=== PATIENT | male | born 1960 | race Caucasian/White ===

== ENCOUNTER 2018-01-05 08:21 | Emergency (ER) | payer OTHER ==
[2018-01-05 08:53] VITALS: BP 124/78
--- NOTE | 2018-01-05 09:08 | UC ---
Back Pain HPI - HPI Summary HPI Summary: 57-year-old male comes in today with complaint of left lower back pain. He has chronic back pain but over the last week the pains got a lot worse. The worst part is in the left lower back sometimes the pain shoots into the groin.. The left leg feels numb intermittently. He feels the left leg is not as strong as the right leg. No difficulty controlling urine or bowels. No new injury. Patient usually works out in the gym every day he's have to avoid that because of the pain. He does take Celebrex. Ibuprofen used out but it does not help anymore. - History of Current Complaint Chief Complaint: UCBackPain Stated Complaint: LOWER LEFT SIDE BACK PAIN Time Seen by Provider: 01/05/18 08:54 Pain Intensity: 6 - Allergies/Home Medications Allergies/Adverse Reactions: Allergies Allergy/AdvReac Type Severity Reaction Status Date / Time No Known Allergies Allergy Verified 01/05/18 08:44 Home Medications: Home Medications Doxazosin TAB* [Cardura TAB*] 1 dose PO BEDTIME 01/05/18 [History Confirmed 06/20] Ibuprofen TAB* [Advil TAB*] 800 mg PO Q6H PRN 01/05/18 [History Confirmed ] celeCOXIB CAP* [CeleBREX CAP*] 100 mg PO DAILY 01/05/18 [History Confirmed 01/05] traZODone TAB* [Desyrel TAB*] 50 mg PO BEDTIME 01/05/18 [History Confirmed 01/05] PMH/Surg Hx/FS Hx/Imm Hx - Additional Past Medical History Additional PMH: Chronic low back pain - Surgical History Surgery Procedure, Year, and Place: Left arm surgery - Social History Alcohol Use: Rare Substance Use Type: None Smoking Status (MU): Never Smoked Tobacco Review of Systems Constitutional: Negative Skin: Negative Eyes: Negative ENT: Negative Respiratory: Negative Cardiovascular: Negative Gastrointestinal: Negative Motor: Other - Patient reports the left leg does not feel as strong as the right leg Neurovascular: Decreased Sensation - Patient reports some decreased sensation in the left leg Musculoskeletal: Other: - SEE HPI Neurological: Weakness, Numbness Psychological: Negative Is Patient Immunocompromised?: No All Other Systems Reviewed And Are Negative: Yes Physical Exam Triage Information Reviewed: Yes Appearance: Well-Appearing, No Pain Distress, Well-Nourished Vital Signs: Initial Vital Signs Temp 98.8 F 01/05/18 08:48 Pulse 82 01/05/18 08:48 Resp 18 01/05/18 08:48 BP 124/78 01/05/18 08:48 Pulse Ox 97 01/05/18 08:48 Vital Signs Reviewed: Yes Eye Exam: Normal Eyes: Positive: Conjunctiva Clear Neck exam: Normal Neck: Positive: Supple Respiratory: Positive: No respiratory distress Musculoskeletal: Positive: Strength Intact, ROM Intact, Other: - Patient is tender to palpation mid lower back and also left of the lower back. There is no tenderness down through the sciatic situation down to the buttock. Patellar reflexes are 1+ bilaterally. Patient reports decreased sensation in the left leg comparison to the right leg. Strength is 5 out of 5 throughout right leg and left leg however the patient states that he feels like his left leg is weaker. He has increased low back pain with hip flexion on both right and left leg. Neurological: Positive: Muscle Tone Normal Psychological Exam: Normal Psychological: Positive: Age Appropriate Behavior Skin Exam: Normal Back Pain Course/Dx - Course Course Of Treatment: Order Information: CT SPINE LUMBAR W/O. Accession Number: [id number]. CPT: 40731. INDICATION: Low back pain. COMPARISON: There are no relevant prior studies available for comparison. TECHNIQUE: Contiguous axial sections were obtained beginning above the T12 vertebra and. continuing through the L5-S1 disc space. Images were reconstructed in the sagittal and. coronal planes. FINDINGS: VERTEBRA: There is a gdlz-[id number] lumbar scoliosis convex toward the left side. No. fracture is seen. There appears to be diffuse congenital spinal canal narrowing. L1-L2: At the L1-L2 level there is posterior endplate spurring associated with a mild. broad-based disc bulge and moderate to severe hypertrophic changes within the facet joints. which gives rise to moderate spinal canal narrowing. There is mild to moderate bilateral. neural foraminal narrowing. L2-L3: There is posterior endplate spurring associated with a broad-based disc bulge and. severe hypertrophic changes within the facet joints which give rise to severe spinal canal. narrowing. There is mild neural foraminal narrowing on the right side and moderate neural. foraminal narrowing on the left side. L3-L4: There is mild posterior endplate spurring associated with a broad-based disc bulge. and severe hypertrophic changes within the facet joints which give rise to severe spinal. canal narrowing. There is moderate bilateral neural foraminal narrowing. L4-L5: There is posterior endplate spurring associated with a mild broad-based disc bulge. and severe hypertrophic changes within the facet joints which give rise to moderate to. severe spinal canal narrowing and moderate to severe bilateral neural foraminal narrowing. L5-S1: There is posterior endplate spurring associated with a mild broad-based disc bulge. and severe hypertrophic changes within the facet joints. There is lateral recess narrowing. and severe neural foraminal narrowing on the left side and moderate to severe neural. foraminal narrowing on the right side. 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 L1-L2 LEVEL, SEVERE SPINAL CANAL NARROWING AT THE L2-L3 AND L3-L4 LEVELS, MODERATE TO. SEVERE SPINAL CANAL NARROWING AT THE L4-L5 LEVEL AND LATERAL RECESS NARROWING AT THE L5-S1. LEVEL. THERE IS ALSO NEURAL FORAMINAL NARROWING AT MULTIPLE LEVELS NOTED. CONSIDER. FOLLOW-UP MR IMAGING FOR FURTHER DEFINITION. _. <Electronically signed by Cheo Butler MD in [facility]> 01/05/18 7716. I discussed the CT results with the patient. The plan at this time is to do prescription for naproxen and a Medrol Dosepak. Patient is to call his primary care doctor today for follow-up. Most probably he would benefit from getting an MRI and potentially physical therapy and if needed follow-up with the customer relationship specialist. The patient know that if he has any weakness numbness difficulty controlling urine or bowels he is to get checked right away preferably in an institution that is able to get an MRI right away. - Differential Dx/Diagnosis Provider Diagnoses: LOW BACK PAIN. LUMBAR RADICULOPATHY Discharge - Sign-Out/Discharge Documenting (check all that apply): Patient Departure All imaging exams completed and their final reports reviewed: Yes - Discharge Plan Condition: Stable Disposition: HOME Prescriptions: methylPREDNISolone [Medrol Dosepak 4 MG*] 4 mg PO .SEE JEFF INSTRUCTION #1 jeff Naproxen [Naproxen 500 mg tab] 500 mg PO BID #30 tablet. Patient Education Materials: Back Pain (ED), Lower Back Exercises (ED), Lumbar Radiculopathy (ED), Lumbar Spinal Stenosis (ED) Referrals: Jan Bonds MD [Primary Care Provider] - Additional Instructions: FOLLOW UP WITH YOUR PRIMARY CARE DOCTOR. CALL THEM TODAY TO ARRANGE FOR FOLLOW UP. GET RECHECKED RIGHT AWAY FOR ANY WORSENING OF YOUR CONDITION; WEAKNESS, NUMBNESS , DIFFICULTY CONTROLLING BOWEL OR BLADDER OR QUESTIONS OR CONCERNS. - Billing Disposition and Condition Condition: STABLE Disposition: Home
--- NOTE | 2018-01-05 09:58 | RAD ---
INDICATION: Low back pain. COMPARISON: There are no relevant prior studies available for comparison. TECHNIQUE: Contiguous axial sections were obtained beginning above the T12 vertebra and continuing through the L5-S1 disc space. Images were reconstructed in the sagittal and coronal planes. FINDINGS: VERTEBRA: There is a asbw-sq-bnfzxoue lumbar scoliosis convex toward the left side. No fracture is seen. There appears to be diffuse congenital spinal canal narrowing. L1-L2: At the L1-L2 level there is posterior endplate spurring associated with a mild broad-based disc bulge and moderate to severe hypertrophic changes within the facet joints which gives rise to moderate spinal canal narrowing. There is mild to moderate bilateral neural foraminal narrowing. L2-L3: There is posterior endplate spurring associated with a broad-based disc bulge and severe hypertrophic changes within the facet joints which give rise to severe spinal canal narrowing. There is mild neural foraminal narrowing on the right side and moderate neural foraminal narrowing on the left side. L3-L4: There is mild posterior endplate spurring associated with a broad-based disc bulge and severe hypertrophic changes within the facet joints which give rise to severe spinal canal narrowing. There is moderate bilateral neural foraminal narrowing. L4-L5: There is posterior endplate spurring associated with a mild broad-based disc bulge and severe hypertrophic changes within the facet joints which give rise to moderate to severe spinal canal narrowing and moderate to severe bilateral neural foraminal narrowing. L5-S1: There is posterior endplate spurring associated with a mild broad-based disc bulge and severe hypertrophic changes within the facet joints. There is lateral recess narrowing and severe neural foraminal narrowing on the left side and moderate to severe neural foraminal narrowing on the right side. IMPRESSION: CONGENITAL SPINAL CANAL NARROWING EXACERBATED BY DIFFUSE DEGENERATIVE DISC DISEASE AND FACET OSTEOARTHRITIS GIVING RISE TO MODERATE SPINAL CANAL NARROWING AT THE L1-L2 LEVEL, SEVERE SPINAL CANAL NARROWING AT THE L2-L3 AND L3-L4 LEVELS, MODERATE TO SEVERE SPINAL CANAL NARROWING AT THE L4-L5 LEVEL AND LATERAL RECESS NARROWING AT THE L5-S1 LEVEL. THERE IS ALSO NEURAL FORAMINAL NARROWING AT MULTIPLE LEVELS NOTED. CONSIDER FOLLOW-UP MR IMAGING FOR FURTHER DEFINITION.
== END 2018-01-05 10:46 | disposition home or self-care (01) ==
LOC: UCCORT 08:21
DX: M51.16 Intervertebral disc disorders with radiculopathy, lumbar region (principal); G89.29 Other chronic pain; M48.07 Spinal stenosis, lumbosacral region
CPT/HCPCS: 72131; 99212; G0463

== ENCOUNTER 2018-11-09 14:20 | Emergency (ER) | payer OTHER ==
--- OUTSIDE RECORDS SUMMARY | 2018-11-09 14:36 | XMS REPORT | Continuity of Care Document ---
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 aJn Bonds MD Primary Care Physician Unavailable Payers Date Identification Numbers Payment Provider Subscriber Policy Number: [id number] Lifetime Benefits [employer] Dimitry [employer] PayID: [id number] [address] [address] [place] [address] Family History Date Family Member(s) Observation Comments Father due to Natural Causes () - Mother due to Natural Causes () - 89 Social History Type Date Description Comments Sex Unknown Tobacco Use Start: Unknown Never Smoked Cigarettes ETOH Use Rare Use Of Alcohol Recreational Drug Use Never Used Drugs Allergies, Adverse Reactions, Alerts Description No Known Drug Allergies Medications Active Medications SIG Qnty Indications Ordering Provider Date Meloxicam 1 by mouth every Unknown 7.5mg Tablets day Zolpidem Tartrate Unknown 5mg Tablets Amlodipine Besylate 1 by mouth every Unknown 10mg day Tablets Doxazosin Mesylate daily Unknown 8mg Tablets Vital Signs Date Vital Result Comment 10/25/2018 10:20am Weight 254.00 lb Height 71 inches 5'11" BMI (Body Mass Index) 35.4 kg/m2 BP Systolic 138 mmHg BP Diastolic 80 mmHg Heart Rate 81 /min O2 % BldC Oximetry 97 % Body Temperature 98.1 F Bancroft Score 10 Neck Circumference in inches 18 Pain Level 0
[2018-11-09 14:42] VITALS: BP 146/73
--- NOTE | 2018-11-09 16:08 | UC ---
UC General HPI - HPI Summary HPI Summary: 58-year-old male comes in with a chief complaint of bilateral pedal edema abdominal bloating and shortness of breath. This started several weeks ago. He had been on a supplement to help him with his weight building when this all started. He spoke with his primary care doctor found his creatinine to be slightly elevated at 1.1. His primary care doctor recommended he stop the supplement. Patient reports the edema continues although the states that it has improved minimally. Denies any chest pain. Denies any any fever or chills or sputum production. No complaint of any change in bowel or bladder. He does take Mobic and ibuprofen for pain and is also on blood pressure medication. - History of Current Complaint Chief Complaint: UCGeneralIllness Stated Complaint: BILATERAL LEG PAIN LETHARGIC CONSTIPATION Time Seen by Provider: 11/09/18 14:47 Pain Intensity: 0 - Allergy/Home Medications Allergies/Adverse Reactions: Allergies Allergy/AdvReac Type Severity Reaction Status Date / Time No Known Allergies Allergy Verified 11/09/18 14:42 Home Medications: Home Medications Loratadine [Claritin] 10 mg PO 11/09/18 [History] Meloxicam 7.5 mg PO 11/09/18 [History] PMH/Surg Hx/FS Hx/Imm Hx Previously Healthy: Yes - chronic pain, on mobic and ibuprofen Cardiovascular History: Hypertension - Surgical History Surgical History: Yes Surgery Procedure, Year, and Place: Left arm surgery - Family History Known Family History: Positive: Non-Contributory - Social History Alcohol Use: Rare Substance Use Type: None Smoking Status (MU): Never Smoked Tobacco Review of Systems All Other Systems Reviewed And Are Negative: Yes Constitutional: Positive: Negative Skin: Positive: Negative Eyes: Positive: Negative ENT: Positive: Negative Respiratory: Positive: Shortness Of Breath, Other - see hpi Cardiovascular: Positive: Negative Gastrointestinal: Positive: Other - see hpi Motor: Positive: Negative Neurovascular: Positive: Negative Musculoskeletal: Positive: Edema Neurological: Positive: Negative Psychological: Positive: Negative Is Patient Immunocompromised?: No Physical Exam Triage Information Reviewed: Yes Appearance: Well-Appearing, No Pain Distress, Well-Nourished Vital Signs: Initial Vital Signs Temp 99.8 F 11/09/18 14:35 Pulse 78 11/09/18 14:35 Resp 20 11/09/18 14:35 BP 146/73 11/09/18 14:35 Pulse Ox 96 11/09/18 14:35 Vital Signs Reviewed: Yes Eye Exam: Normal Eyes: Positive: Conjunctiva Clear ENT: Positive: Pharynx normal Neck: Positive: Supple Respiratory: Positive: Lungs clear, Normal breath sounds, No respiratory distress Cardiovascular: Positive: RRR, No Murmur Abdomen Description: Positive: Nontender, Soft. Negative: CVA Tenderness (R), CVA Tenderness (L) Bowel Sounds: Positive: Present Musculoskeletal: Positive: Strength Intact, ROM Intact, Other: - Bilateral pedal edema up to just below the knees. Normal capillary refill. Normal sensation. Neurological: Positive: Alert, Muscle Tone Normal Psychological: Positive: Age Appropriate Behavior Skin Exam: Normal Course/Dx - Course Course Of Treatment: Patient Name: JESSY BELTRÁN Medical Record#: [id number] Ordering Physician: Kalyan Julian MD Acct.#: [id number] : 1960 Age: 58 Sex: M Location: [facility] Exam Date: 11/09/181456 ADM Status: REG ER Order Information: CHEST PA LAT 2 VWS Accession Number: [id number] CPT: 61493 INDICATION: Shortness of breath. Lower extremity swelling COMPARISON: There are no relevant prior studies available for comparison. TECHNIQUE: Dual-energy PA and lateral views of the chest were obtained. FINDINGS: The lungs are well-inflated on the PA view but poorly inflated on the lateral view. Retrocardiac airspace opacification is seen only on the lateral view. There is no pleural effusion. The cardiomediastinal silhouette is within normal limits. The upper abdominal contents are normal. Osseous structures are unremarkable. IMPRESSION: Retrocardiac airspace opacification is seen only on the lateral view. The lungs are hypoinflated on this view. 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 <Electronically signed by Roger Lara MD in [facility]> 11/09/18 1531 I recommended stopping the Mobic and ibuprofen however the patient reports that he needs to use that to help with his pain. I let them know that Mobic and ibuprofen can increase edema and potentially cause kidney problems. I discussed with the patient that he needs further evaluation with ultrasound and CT to evaluate for the cause of his edema which can include masses or blood clots. I let him know we are not able to do this here in clinic and I recommended further evaluation in the emergency department and the patient declined going to the emergency department prefers to be evaluated here. It discussed the chest x-ray with him and it is concerning having an infiltrate on the lateral view without any signs of pneumonia. I let him know we needed to do a CT scan with contrast to further evaluate the cause of his symptoms and that this can only be done at the emergency Department do not do that here. At this time we do not have ultrasound available to let him know that he needed ultrasound venous Dopplers of his legs to rule out clots in his legs and that the only place that can be done today is at the emergency department. I let him know that the blood work we do here were unable to evaluate for heart problems or blood clots and that those labs can be drawn in the emergency department. Plan at this time is for checking a CBC CMP and BNP. I wrote a prescription for hydrocodone that is a 12.5 mg to be taken daily. Plan is to check his blood work tomorrow to ensure that his renal function is not elevated. If it is elevated he will need to know to stop taking hydrochlorothiazide. I let the patient know that if he did not improve or worsens he should go directly to the emergency department. - Diagnoses Provider Diagnosis: Edema, Shortness of breath, Pulmonary infiltrate on chest x-ray Discharge - Sign-Out/Discharge Documenting (check all that apply): Patient Departure All imaging exams completed and their final reports reviewed: Yes - Discharge Plan Condition: Stable Disposition: HOME Prescriptions: hydroCHLOROthiazide [Hydrochlorothiazide] 12.5 mg PO DAILY #10 tablet Patient Education Materials: Edema (ED), Shortness of Breath (ED) Referrals: Jan Bonds MD [Primary Care Provider] - Additional Instructions: FOLLOW UP WITH YOUR DOCTOR. On your chest x-ray today you had an infiltrate of undetermined origin. The possibility of a mass in the chest including cancer is a possibility. To fully evaluate your edema and shortness of breath you need to have ultrasound Dopplers of your legs and also CT with contrast of the abdomen and pelvis and a CT scan of your chest. At this time of these tests are available at our facility. We do have blood work pending [facility] which should be available tomorrow November 10, 2018. We are not able to completely evaluate for congestive heart failure or blood clots to include deep venous thrombosis or pulmonary embolus or heart damage or weakening here in clinic. The emergency department is able to evaluate for all these possibilities and I do recommend evaluation in the emergency department. GO TO THE EMERGENCY DEPARTMENT SOONER IF YOUR CONDITION DOES NOT IMPROVE OR WORSE OR ANY QUESTIONS OR CONCERNS. - Billing Disposition and Condition Condition: STABLE Disposition: Home
[2018-11-10 11:02] LABS: Hematocrit 39 % (42-52); Mean Corpuscular HGB Conc 34 g/dL (31-36); Mean Corpuscular Hemoglobin 30 pg (27-31); Mean Corpuscular Volume 89 fL (80-94); Mean Platelet Volume 8.8 fL (7.4-10.4); Platelet Count 313 10^3/uL (150-450); Red Blood Count 4.33 10^6 /uL (4.18-5.48); Red Cell Distribution Width 17 % (10-15); White Blood Count 9.5 10^3/uL (3.5-10.8)
[2018-11-10 11:27] LABS: TSH (Thyroid Stimulating Horm) 4.09 mcIU/mL (0.34-5.60)
[2018-11-10 11:31] LABS: ABS Eosinophils 0.6 10^3/ul (0-0.6); ABS Lymphocytes 0.3 10^3/ul (1.0-4.8); ABS Monocytes 0.7 10^3/ul (0-0.8); ABS Neutrophils 7.9 10^3/ul (1.5-7.7); Eosinophil % 6.4 %; Lymphocyte % 3.4 %
[2018-11-10 12:24] LABS: Albumin 3.6 g/dL (3.2-5.2); Albumin/Globulin Ratio 1.3 (1-3); BUN/Creatinine Ratio 12.2 (8-20); Calcium 8.8 mg/dL (8.6-10.3); EGFR African American 46.5 (>60); EGFR Non-African American 38.4 (>60); Globulin 2.7 g/dL (2-4); Potassium 4.4 mmol/L (3.5-5.0); Total Bilirubin 0.8 mg/dL (0.2-1.0); Total Protein 6.3 g/dL (6.4-8.9)
--- NOTE | 2018-11-10 13:12 | UC ---
- Progress Note Progress Note: Lab work comes back from November 09, 2018. The creatinine is elevated at 1.81. Prior creatinine was normal in October 2018. Patient was seen here for pedal edema abdominal fullness and shortness of breath. Nursing to call patient and inform him to go to the emergency department for further evaluation and treatment of his worsening kidney function. Course/Dx - Diagnoses Provider Diagnoses: Edema, Shortness of breath, Pulmonary infiltrate on chest x-ray Discharge - Sign-Out/Discharge Documenting (check all that apply): Patient Departure All imaging exams completed and their final reports reviewed: Yes - Discharge Plan Condition: Stable Disposition: HOME Prescriptions: hydroCHLOROthiazide [Hydrochlorothiazide] 12.5 mg PO DAILY #10 tablet Patient Education Materials: Edema (ED), Shortness of Breath (ED) Referrals: Jan Bonds MD [Primary Care Provider] - Additional Instructions: FOLLOW UP WITH YOUR DOCTOR. On your chest x-ray today you had an infiltrate of undetermined origin. The possibility of a mass in the chest including cancer is a possibility. To fully evaluate your edema and shortness of breath you need to have ultrasound Dopplers of your legs and also CT with contrast of the abdomen and pelvis and a CT scan of your chest. At this time of these tests are available at our facility. We do have blood work pending [facility] which should be available tomorrow November 10, 2018. We are not able to completely evaluate for congestive heart failure or blood clots to include deep venous thrombosis or pulmonary embolus or heart damage or weakening here in clinic. The emergency department is able to evaluate for all these possibilities and I do recommend evaluation in the emergency department. GO TO THE EMERGENCY DEPARTMENT SOONER IF YOUR CONDITION DOES NOT IMPROVE OR WORSE OR ANY QUESTIONS OR CONCERNS. - Billing Disposition and Condition Condition: STABLE Disposition: Home
== END 2018-11-09 16:16 | disposition home or self-care (01) ==
LOC: UCCORT 14:20
DX: R60.9 Edema, unspecified (principal); R06.02 Shortness of breath; R91.8 Other nonspecific abnormal finding of lung field; I10 Essential (primary) hypertension
CPT/HCPCS: 36415; 71046; 80053; 83880; 84443; 85025; 99212; G0463

== ENCOUNTER 2019-04-10 07:30 | Emergency (ER) | payer OTHER ==
--- OUTSIDE RECORDS SUMMARY | 2019-04-10 07:42 | XMS REPORT | Continuity of Care Document ---
:1960 External Reference #:[id number] Author Name Jan Bonds MD (transmitted by agent of provider Lucrecia Poon) Address [address] [place] [address] Care Team Providers Name Role Phone Brian Mckeon MD - Gastroenterology Care Team Information [phone] Manager Occupational Celio Grady MD - Care Team Information [phone] Neuromusculoskeletal Medicine, Sports Manager Occupational Medicine Raghu Mercado MD - Urology Care Team Information [phone] Manager Occupational oJsue Jay MD - Surgery Care Team Information [phone] Manager Occupational aJn Bonds MD - Family Care Team Information [phone] Medicine Manager Occupational Nitza Mendieta MD - Pain Medicine Care Team Information [phone] Manager Occupational Problems Active Problems Provider Date Gout Onset: 06/16/2012 Essential hypertension Onset: 06/16/2012 Hyperlipidemia Onset: 06/16/2012 Social History Type Date Description Comments Sex Unknown ETOH Use Occasionally consumes alcohol Tobacco Use Reviewed: 10/19/16 Patient has never smoked Smoking Status Reviewed: 02/13/19 Patient has never smoked Allergies, Adverse Reactions, Alerts Active Allergies Reaction Severity Comments Date Robitussin DM Difficulty breathing Severe 11/17/2018 Lasix possible anaphylaxis Severe throat swelling seen 11/25/2018 throat ti in ER Inactive Allergies NKDA 08/18/2018 Medications Active Medications SIG Qnty Indications Ordering Date Provider Hydroxyzine HCL 1 by mouth 3 180tabs L29.9 Jan 02/13/2019 10mg times a day and MD Vamshi Tablets 3 pills at at bedtime Viagra use as needed 6tabs N52.9 Jan 05/17/2018 100mg Tablets daily MD Vamshi Ambien 1 every night 30tabs F51.01 Jan 05/17/2018 5mg Tablets at bedtime MD Vamshi Doxazosin Mesylate 1 by mouth 90tabs I10 Jan 07/30/2017 8mg every day MD Vamshi Tablets Spironolactone take 1 tablet Unknown 25mg Tablets by mouth once daily Bumetanide TK 1/2 To 1 T Unknown 2mg Tablets PO qd History Medications Amlodipine Besylate 1 by mouth 30tabs I10 Jan Bonds 08/18/2018 - every day 11/17/2018 10mg Tablets Meloxicam 1 by mouth 30tabs M54.5 Jan Bonds 08/18/2018 - 7.5mg every day 11/17/2018 Tablets Immunizations CPT Code Status Date Vaccine Reaction Lot # [id number] Given 08/18/2018 Tdap - risks and benefits [id number] Tetanus/Diptheria/Acellular discussed Pertussis 45777 Given 01/07/2010 Influenza Virus 3Yrs & Over 58825 Given 03/11/2009 Tdap - Tetanus/Diptheria/Acellular Pertussis 53602 Given 02/10/2005 Tetanus And Diptheria (Td) For Adult Use Preservative Free Vital Signs Date Vital Result Comment 02/13/2019 8:03am Weight 245.12 lb BP Systolic Sitting 110 mmHg BP Diastolic Sitting 80 mmHg 01/20/2019 9:21am Weight 247.00 lb BP Systolic 108 mmHg BP Diastolic 72 mmHg Results Test Acquired Date Facility Test Result H/L Range Note CBC Auto 11/09/2018 [facility] White Blood 9.5 10^3/uL Normal 3.5-10.8 [address] [place] [address] [phone] Red Blood Count 4.33 10^6/uL Normal 4.18-5.48 Hemoglobin 13.0 g/dL Low 14.0-18.0 Hematocrit 39 % Low 42-52 Mean Corpuscular Volume 89 fL Normal 80-94 Mean Corpuscular Hemoglobin 30 pg Normal 27-31 Mean Corpuscular HGB Conc 34 g/dL Normal 31-36 Red Cell Distribution Width 17 % High 10-15 Platelet Count 313 10^3/uL Normal 150-450 Mean Platelet Volume 8.8 fL Normal 7.4-10.4 Abs Neutrophils 7.9 10^3/uL High 1.5-7.7 Abs Lymphocytes 0.3 10^3/uL Low 1.0-4.8 Abs Monocytes 0.7 10^3/uL Normal 0-0.8 Abs Eosinophils 0.6 10^3/uL Normal 0-0.6 Abs Basophils 0.0 10^3/uL Normal 0-0.2 Abs Nucleated RBC 0.0 10^3/uL Granulocyte % 83.2 % Lymphocyte % 3.4 % Monocyte % 6.9 % Eosinophil % 6.4 % Basophil % 0.1 % Nucleated Red Blood Cells % 0.0 Laboratory test 11/09/2018 [facility] B-Type 57 pg/mL <=100 [address] [place] [address] Peptide BNP [phone] TSH (Thyroid Stim Horm) 4.09 mcIU/mL Normal 0.34-5.60 3 Comp Metabolic 11/09/2018 [facility] Sodium 138 mmol/L Normal 135-[address] [place] [address] [phone] Potassium 4.4 mmol/L Normal 3.5-5.0 Chloride 108 mmol/L Normal 101-111 Co2 Carbon Dioxide 20 mmol/L Low 22-32 Anion Gap 10 mmol/L Normal 2-11 Glucose 115 mg/dL High 70-100 Blood Urea Nitrogen 22 mg/dL Normal 6-24 Creatinine 1.81 mg/dL High 0.67-1.17 BUN/Creatinine Ratio 12.2 Normal 8-20 Calcium 8.8 mg/dL Normal 8.6-10.3 Total Protein 6.3 g/dL Low 6.4-8.9 Albumin 3.6 g/dL Normal 3.2-5.2 Globulin 2.7 g/dL Normal 2-4 Albumin/Globulin Ratio 1.3 Normal 1-3 Total Bilirubin 0.80 mg/dL Normal 0.2-1.0 Alkaline Phosphatase 84 U/L Normal 34-104 Alt 38 U/L Normal 7-52 Ast 53 U/L High 13-39 Egfr Non- 38.4 >60 Egfr 46.5 >60 4 Laboratory test 10/17/2018 [facility] PSA Screening 4.334 High 0-4.000 [address] ng/[place] [address] [phone] Comp Metabolic 10/17/2018 [facility] Sodium 137 Normal 135- [address] mmol/[place] [address] [phone] Potassium 4.5 mmol/L Normal 3.5-5.0 Chloride 108 mmol/L Normal 101-111 Co2 Carbon Dioxide 22 mmol/L Normal 22-32 Anion Gap 7 mmol/L Normal 2-11 Glucose 103 mg/dL High 70-100 Blood Urea Nitrogen 21 mg/dL Normal 6-24 Creatinine 1.15 mg/dL Normal 0.67-1.17 BUN/Creatinine Ratio 18.3 Normal 8-20 Calcium 8.6 mg/dL Normal 8.6-10.3 Total Protein 6.1 g/dL Low 6.4-8.9 Albumin 3.3 g/dL Normal 3.2-5.2 Globulin 2.8 g/dL Normal 2-4 Albumin/Globulin Ratio 1.2 Normal 1-3 Total Bilirubin 1.10 mg/dL High 0.2-1.0 Alkaline Phosphatase 80 U/L Normal 34-104 Alt 35 U/L Normal 7-52 Ast 46 U/L High 13-39 Egfr Non- 64.9 >60 Egfr 78.5 >60 6 CBC Auto 10/17/2018 [facility] White Blood 6.9 10^3/uL Normal 3.5-10.[address] [place] [address] [phone] Red Blood Count 4.69 10^6/uL Normal 4.18-5.48 Hemoglobin 13.8 g/dL Low 14.0-18.0 Hematocrit 42 % Normal 42-52 Mean Corpuscular Volume 88 fL Normal 80-94 Mean Corpuscular Hemoglobin 30 pg Normal 27-31 Mean Corpuscular HGB Conc 33 g/dL Normal 31-36 Red Cell Distribution Width 16 % High 10-15 Platelet Count 324 10^3/uL Normal 150-450 Mean Platelet Volume 8.5 fL Normal 7.4-10.4 Abs Neutrophils 5.2 10^3/uL Normal 1.5-7.7 Abs Lymphocytes 0.5 10^3/uL Low 1.0-4.8 Abs Monocytes 0.6 10^3/uL Normal 0-0.8 Abs Eosinophils 0.4 10^3/uL Normal 0-0.6 Abs Basophils 0.1 10^3/uL Normal 0-0.2 Abs Nucleated RBC 0.0 10^3/uL Granulocyte % 75.2 % Lymphocyte % 7.7 % Monocyte % 9.3 % Eosinophil % 6.4 % Basophil % 1.4 % Nucleated Red Blood Cells % 0.0 Lipid Profile 10/17/2018 [facility] Triglycerides 64 mg/dL 7 (Trig/Chol/HDL) [address] [place] [address] [phone] Cholesterol 167 mg/dL 8 HDL Cholesterol 17.7 mg/dL 9 LDL Cholesterol 137 mg/dL 10 1 [id number] 2 [id number] 3 [id number] 4 Because ethnic data is not always readily available, this report includes an eGFR for both -Americans and non- Americans. The National Kidney Disease Education Program (NKDEP) does not endorse the use of the MDRD equation for patients that are not between the ages of 18 and 70, are , have extremes of body size, muscle mass, or nutritional status, or are non- or non-. According to the National Kidney Foundation, irrespective of diagnosis, the stage of the disease is based on the level of kidney function: Stage Description GFR(mL/min/1.73 m(2)) 1 Kidney damage with normal or decreased GFR 90 2 Kidney damage with mild decrease in GFR 60-89 3 Moderate decrease in GFR 30-59 4 Severe decrease in GFR 15-29 5 Kidney failure <15 (or dialysis) 5 Serum levels of PSA measured using the [employer] DXI Hybritech immunoassay should not be interpreted as absolute evidence of the presence or absence of disease. The PSA value should be used in conjunction with other pertinent clinical diagnostic procedures. The values obtained with different assay methods or kits cannot be used interchangeably. 6 Because ethnic data is not always readily available, this report includes an eGFR for both -Americans and non- Americans. The National Kidney Disease Education Program (NKDEP) does not endorse the use of the MDRD equation for patients that are not between the ages of 18 and 70, are , have extremes of body size, muscle mass, or nutritional status, or are non- or non-. According to the National Kidney Foundation, irrespective of diagnosis, the stage of the disease is based on the level of kidney function: Stage Description GFR(mL/min/1.73 m(2)) 1 Kidney damage with normal or decreased GFR 90 2 Kidney damage with mild decrease in GFR 60-89 3 Moderate decrease in GFR 30-59 4 Severe decrease in GFR 15-29 5 Kidney failure <15 (or dialysis) 7 Desirable: <150 Borderline High: 150-199 High: 200-499 Very High: >500 8 Desirable: <200 Borderline High: 200-239 High: >239 9 Low: <40 Desirable: 40-60 High: >60 10 Desirable: <100 Near Optimal: 100-129 Borderline High: 130-159 High: 160-189 Very High: >189 Procedures Date Code Description Status 05/06/2018 [id number] Colonoscopy Completed 12/23/2012 [id number] Colonoscopy Completed Medical Devices Description No Information Available Encounters Type Date Location Provider Dx Diagnosis Office Visit 01/20/2019 [facility] Jan S75.002D Unspecified injury 9:15a MD Vamshi of femoral artery, left leg, subs encntr S22.31xB Fracture of one rib, right side, init for opn fx S27.0xxD Traumatic pneumothorax, subsequent encounter M54.5 Low back pain Office Visit 01/13/2019 [facility] Jan S75.002D Unspecified 11:30a Deny Bonds MD injury of femoral artery, left leg, subs encntr S22.31xB Fracture of one rib, right side, init for opn fx S27.0xxD Traumatic pneumothorax, subsequent encounter Office Visit 11/17/2018 [facility] Jan I50.20 Unspecified 8:15a Deny Bonds MD systolic (congestive) heart failure N17.9 Acute kidney failure, unspecified Office Visit 08/18/2018 8:15a [facility] Jan Bonds, Z00.01 Encounter for Care general adult medical exam w abnormal findings Z12.11 Encounter for screening for malignant neoplasm of colon Z12.5 Encounter for screening for malignant neoplasm of prostate I10 Essential (primary) hypertension M54.5 Low back pain F51.01 Primary insomnia N52.9 Male erectile dysfunction, unspecified Z23 Encounter for immunization Assessments Date Code Description Provider 02/13/2019 L29.9 Pruritus, unspecified Jan Bonds MD 02/13/2019 R53.83 Other fatigue Jan Bonds MD 02/13/2019 M79.10 Myalgia, unspecified site Jan Bonds MD 01/20/2019 S75.002D Unspecified injury of femoral artery, left Jan Bonds MD leg, subsequent encounter 01/20/2019 S22.31xB Fracture of one rib, right side, initial Jan Bonds MD encounter for open fracture 01/20/2019 S27.0xxD Traumatic pneumothorax, subsequent Jan Bonds MD encounter 01/20/2019 M54.5 Low back pain Jan Bonds MD 01/13/2019 S75.002D Unspecified injury of femoral artery, left Jan Bonds MD leg, subsequent encounter 01/13/2019 S22.31xB Fracture of one rib, right side, initial Jan Bonds MD encounter for open fracture 01/13/2019 S27.0xxD Traumatic pneumothorax, subsequent Jan Bonds MD encounter 11/17/2018 I50.20 Unspecified systolic (congestive) heart Jan Bonds MD failure 11/17/2018 N17.9 Acute kidney failure, unspecified Jan Bonds MD 08/18/2018 Z00.01 Encounter for general adult medical Jan Bonds MD examination with abnorma 08/18/2018 Z12.11 dings Jan Bonds MD 08/18/2018 Z12.5 Encounter for screening for malignant Jan Bonds MD neoplasm of prostate 08/18/2018 I10 Essential (primary) hypertension Jan Bonds MD 08/18/2018 M54.5 Low back pain Jan Bonds MD 08/18/2018 F51.01 Primary insomnia Jan Bonds MD 08/18/2018 N52.9 Male erectile dysfunction, unspecified Jan Bonds MD 08/18/2018 Z23 Encounter for immunization Jan Bonds MD Plan of Treatment Future Appointment(s):02/28/2019 8:00 am - Jan Bonds MD at [facility]08/21/2019 8:00 am - Jan Bonds MD at [facility]02/2019 - Jan Bonds MDL29.9 Pruritus, unspecifiedNew Medication: Hydroxyzine HCL 10 mg - 1 by mouth 3 times a day and 3 pills at at bedtimeNew Labs:Comp Metabolic Panel, Ordered: 02/13/19Follow up:2 weeks.R53.83 Other fatigueNew Labs:CBC Auto Diff, Ordered: 02/13/19C Reactive Protein, Ordered: 02/21Erythrocyte Sed Rate, Ordered: 02/13/19TSH (Thyroid Stim Horm), Ordered: M79.10 Myalgia, unspecified siteNew Labs:Uric Acid, Ordered: 02/13/19 Functional Status Description No Information Available Mental Status Description No Information Available Referrals Refer to Reason for Referral Status Appt Date Nitza Mendieta MD Created [address] [place] [phone]
--- OUTSIDE RECORDS SUMMARY | 2019-04-10 07:42 | XMS REPORT | Continuity of Care Document ---
:1960 External Reference #:[id number] Author Name Jan Bonds MD (transmitted by agent of provider Lucrecia Poon) Address [address] [place] [address] Care Team Providers Name Role Phone Brian Mckeon MD - Gastroenterology Care Team Information [phone] Fish Pitcher Celio Grady MD - Care Team Information [phone] Neuromusculoskeletal Medicine, Sports Fish Pitcher Medicine Raghu Mercado MD - Urology Care Team Information [phone] Fish Pitcher Josue Jay MD - Surgery Care Team Information [phone] Fish Pitcher Jan Bonds MD - Family Care Team Information [phone] Medicine Fish Pitcher Nitza Mendieta MD - Pain Medicine Care Team Information [phone] Fish Pitcher Moy Lucia DO - Interventional Pain Care Team Information [phone] Medicine Fish Pitcher Problems Active Problems Provider Date Gout Onset: 06/16/2012 Essential hypertension Onset: 06/16/2012 Hyperlipidemia Onset: 06/16/2012 Social History Type Date Description Comments Sex Unknown ETOH Use Occasionally consumes alcohol Tobacco Use Reviewed: 10/19/16 Patient has never smoked Smoking Status Reviewed: 02/28/19 Patient has never smoked Allergies, Adverse Reactions, Alerts Active Allergies Reaction Severity Comments Date Robitussin DM Difficulty breathing Severe 11/17/2018 Lasix possible anaphylaxis Severe throat swelling seen 11/25/2018 throat ti in ER Inactive Allergies NKDA 08/18/2018 Medications Active Medications SIG Qnty Indications Ordering Date Provider Diclofenac Sodium ER 1 by mouth 30tabs M19.90 Jan 02/28/2019 100mg every day MD Vamshi Tablets ER 24HR Hydroxyzine HCL 1 by mouth 3 180tabs L29.9 Jan 02/13/2019 10mg times a day and MD Vamshi Tablets 3 pills at at bedtime Colchicine take 2 now, 1 60caps Jan 02/13/2019 0.6mg Capsules an hour later MD Vamshi then 1 twice a day Viagra use as needed 6tabs N52.9 Jan [...] 1 T Unknown 2mg Tablets PO qd Immunizations CPT Code Status Date Vaccine Reaction Lot # [id number] Given 08/18/2018 Tdap - risks and benefits C7734 Tetanus/Diptheria/Acellular discussed Pertussis 84905 Given 01/07/2010 Influenza Virus 3Yrs & Over [address]9927 Given 03/11/2009 Tdap - Tetanus/Diptheria/Acellular Pertussis 13762 Given 02/10/2005 Tetanus And Diptheria (Td) For Adult Use Preservative Free Vital Signs Date Vital Result Comment 02/28/2019 8:05am BP Systolic 136 mmHg BP Diastolic 72 mmHg 02/13/2019 8:03am Weight 245.12 lb BP Systolic Sitting 110 mmHg BP Diastolic Sitting 80 mmHg Results Test Acquired Date Facility Test Result H/L Range Note Comp Metabolic [facility] Sodium 138 mmol/L Normal 135-[address] [place] [address] [phone] Potassium 4.1 mmol/L Normal 3.5-5.0 Chloride 110 mmol/L Normal 101-111 Co2 Carbon Dioxide 19 mmol/L Low 22-32 Anion Gap 9 mmol/L Normal 2-11 Glucose 111 mg/dL High 70-100 Blood Urea Nitrogen 18 mg/dL Normal 6-24 Creatinine 1.04 mg/dL Normal 0.67-1.17 BUN/Creatinine Ratio 17.3 Normal 8-20 Calcium 8.9 mg/dL Normal 8.6-10.3 Total Protein 6.4 g/dL Normal 6.4-8.9 Albumin 3.4 g/dL Normal 3.2-5.2 Globulin 3.0 g/dL Normal 2-4 Albumin/Globulin Ratio 1.1 Normal 1-3 Total Bilirubin 0.70 mg/dL Normal 0.2-1.0 Alkaline Phosphatase 85 U/L Normal 34-104 Alt 31 U/L Normal 7-52 Ast 34 U/L Normal 13-39 Egfr Non- 72.8 >60 Egfr 88.1 >60 1 CBC Auto 02/13[facility] White Blood 6.7 10^3/uL Normal 3.5-10.[address] [place] [address] [phone] Red Blood Count 4.78 10^6/uL Normal 4.18-5.48 Hemoglobin 13.8 g/dL Low 14.0-18.0 Hematocrit 41 % Low 42-52 Mean Corpuscular Volume 87 fL Normal 80-94 Mean Corpuscular Hemoglobin 29 pg Normal 27-31 Mean Corpuscular HGB Conc 33 g/dL Normal 31-36 Red Cell Distribution Width 17 % High 10-15 Platelet Count 383 10^3/uL Normal 150-450 Mean Platelet Volume 8.6 fL Normal 7.4-10.4 Abs Neutrophils 5.0 10^3/uL Normal 1.5-7.7 Abs Lymphocytes 0.3 10^3/uL Low 1.0-4.8 Abs Monocytes 0.6 10^3/uL Normal 0-0.8 Abs Eosinophils 0.8 10^3/uL High 0-0.6 Abs Basophils 0.1 10^3/uL Normal 0-0.2 Abs Nucleated RBC 0.0 10^3/uL Granulocyte % 73.5 % Lymphocyte % 4.9 % Monocyte % 8.8 % Eosinophil % 11.6 % Basophil % 1.2 % Nucleated Red Blood Cells % 0.1 Laboratory test 02/13/[facility] C Reactive 21.48 mg/L High <8.[address] [place] [address] [phone] Erythrocyte Sed Rate 28 mm/Hr High 0-19 TSH (Thyroid Stim Horm) 3.09 mcIU/mL Normal 0.34-5.60 Uric Acid 7.3 mg/dL Normal 4.4-7.6 CBC Auto 11/09/2018 [facility] White Blood 9.5 10^3/uL Normal 3.5-10.8 [address] [place] [address] [phone] Red Blood Count 4.33 10^6/uL Normal 4.18-5.48 [...] Blood Cells % 0.0 Laboratory test 11/09/2018 [facility] B-Type 57 pg/mL <=[address] [place] [address] Peptide BNP [phone] TSH (Thyroid Stim Horm) 4.09 mcIU/mL Normal 0.34-5.60 4 Comp Metabolic 11/09/2018 [facility] Sodium 138 mmol/L Normal 135-[address] [place] [address] [phone] Potassium 4.4 mmol/L Normal 3.5-5.0 Chloride 108 [...] Egfr Non- 38.4 >60 Egfr 46.5 >60 5 Laboratory test 10/17/2018 [facility] PSA Screening 4.334 High 0-4.000 [address] ng/[place] [address] [phone] Comp Metabolic 10/17/2018 [facility] Sodium 137 Normal 135- [address] mmol/[place] [address] [phone] Potassium 4.5 mmol/L Normal 3.5-5.0 Chloride 108 [...] Egfr Non- 64.9 >60 Egfr 78.5 >60 7 CBC Auto 10/17/2018 [facility] White Blood 6.9 10^3/uL Normal 3.5-10.[address] [place] [address] [phone] Red Blood Count 4.69 10^6/uL Normal 4.18-5.48 [...] Blood Cells % 0.0 Lipid Profile 10/17/2018 [facility] Triglycerides 64 mg/dL 8 (Trig/Chol/HDL) [address] [place] [address] [phone] Cholesterol 167 mg/dL 9 HDL Cholesterol 17.7 mg/dL 10 LDL Cholesterol 137 mg/dL 11 1 Because ethnic data is not always readily [...] 15-29 5 Kidney failure <15 (or dialysis) 2 [id number] 3 [id number] 4 [id number] 5 Because ethnic data is not always readily [...] 15-29 5 Kidney failure <15 (or dialysis) 6 Serum levels of PSA measured using the [employer] DXI Hybritech immunoassay should not be interpreted as absolute evidence of the presence or absence of disease. The PSA value should be used in conjunction with other pertinent clinical diagnostic procedures. The values obtained with different assay methods or kits cannot be used interchangeably. 7 Because ethnic data is not always readily [...] 15-29 5 Kidney failure <15 (or dialysis) 8 Desirable: <150 Borderline High: 150-199 High: 200-499 Very High: >500 9 Desirable: <200 Borderline High: 200-239 High: >239 10 Low: <40 Desirable: 40-60 High: >60 11 Desirable: <100 Near Optimal: 100-129 Borderline High: 130-159 High: 160-189 Very High: >189 Procedures Date Code Description Status 05/06/2018 [id number] Colonoscopy Completed 12/23/2012 [id number] Colonoscopy Completed Medical Devices Description No Information Available Encounters Type Date Location Provider Dx Diagnosis Office Visit 02/13/2019 [facility] Jan L29.9 Pruritus, 8:15a MD Vamshi unspecified R53.83 Other fatigue M79.10 Myalgia, unspecified site Office Visit 01/20/2019 [facility] Jan S75.002D Unspecified 9:15a Deny Bonds MD injury of femoral artery, left leg, subs encntr S22.31xB Fracture of one rib, right side, init for opn fx S27.0xxD Traumatic pneumothorax, subsequent encounter M54.5 Low back pain Office Visit 01/13/2019 [facility] Jan S75.002D Unspecified 11:30a Deny Bonds MD injury of femoral artery, left leg, subs encntr S22.31xB Fracture of one rib, right side, init for opn fx S27.0xxD Traumatic pneumothorax, subsequent encounter Office Visit 11/17/2018 [facility] Jan I50.20 Unspecified 8:15a Deny Bonds MD systolic (congestive) heart failure N17.9 Acute kidney failure, unspecified Assessments Date Code Description Provider 02/28/2019 M19.90 Unspecified osteoarthritis, unspecified Jan Bonds MD site 02/28/2019 J06.9 Acute upper respiratory infection, Jan Bonds MD unspecified 02/13/2019 L29.9 Pruritus, unspecified Jan Bonds MD [...] Acute kidney failure, unspecified Jan Bonds MD Plan of Treatment Future Appointment(s):08/21/2019 8:00 am - Jan Bonds MD at [facility]02/28/2019 - Jan Bonds MDM19.90 Unspecified osteoarthritis , unspecified siteNew Medication:Diclofenac Sodium ER 100 mg - 1 by mouth every dayNew Labs:CBC Auto Diff, Ordered: 02/28/19C Reactive Protein, Ordered: Erythrocyte Sed Rate, Ordered: 02/28/19Rheumatoid Factor, Ordered: Uric Acid, Ordered: 02/28/19J06.9 Acute upper respiratory infection, unspecified Functional Status Description No Information Available Mental Status Description No Information Available Referrals Refer to Reason for Referral Status Appt Date Moy Lucia DO Created [address] [place] [phone]
[2019-04-10 07:48] VITALS: BP 139/94
--- NOTE | 2019-04-10 08:07 | UC ---
[facility] HPI - HPI Summary HPI Summary: 58yo man with 2-3 day history of left facial swelling and pain, presumed due to dental infection. He has a low grade fever, has been using ibuprofen 800mg three times daily. He cannot swallow well, but does not have breathing compromise. - History of Current Complaint Chief Complaint: UCDentalProblem Stated Complaint: DENTAL Time Seen by Provider: 04/10/19 07:58 Hx Obtained From: Patient - 58 yo Onset/Duration: Gradual Onset, Lasting Days - 3 Severity: Moderate Pain Intensity: 4 Aggravating Factor(s): Chewing Alleviating Factor(s): OTC Meds Related History: Previous Dental Care on Same Tooth - Allergies/Home Medications Allergies/Adverse Reactions: Allergies Allergy/AdvReac Type Severity Reaction Status Date / Time furosemide [From Lasix] Allergy Anaphylatic Verified 04/10/19 07:40 Shock Home Medications: Home Medications Diuretic 1 tab PO DAILY 04/10/19 [History] PMH/Surg Hx/FS Hx/Imm Hx Cardiovascular History: Hypertension, Other - recurrent edema, on diuretic GI/ History: Renal Disease - hx of elevated creatinine in the past. - Surgical History Surgical History: Yes Surgery Procedure, Year, and Place: Left arm surgery - Family History Known Family History: Positive: Non-Contributory - Social History Alcohol Use: Occasionally Substance Use Type: None Smoking Status (MU): Never Smoked Tobacco Review of Systems All Other Systems Reviewed And Are Negative: Yes Constitutional: Positive: Fever Eyes: Negative: Blurred Vision, Diplopia ENT: Positive: Dental Pain Respiratory: Positive: Negative. Negative: Cough Cardiovascular: Negative: Chest Pain Gastrointestinal: Positive: Negative Genitourinary: Positive: Negative Motor: Positive: Negative Neurovascular: Positive: Negative Musculoskeletal: Positive: Myalgia Neurological: Positive: Headache Psychological: Positive: Negative Is Patient Immunocompromised?: No Physical Exam Triage Information Reviewed: Yes Appearance: Ill-Appearing, Pain Distress - mild to moderate. Vital Signs: Initial Vital Signs Temp 99.4 F 04/10/19 07:43 Pulse 80 04/10/19 07:43 Resp 28 04/10/19 07:43 BP 139/94 04/10/19 07:43 Pulse Ox 97 04/10/19 07:43 Eyes: Positive: Conjunctiva Clear, Other: - mild bilateral marita-orbital edema. LEONCIO, normal eom. ENT Exam: Other - cannot see oropharynx well secondary to swelling. Significant left facial swelling, firm and indurated, from ear to anterior neck, over 18 x 8 cm area. Dental: Positive: Gross Decay/Caries @ - 18, 20, Abscess @ - 20, Cervical Lymphadenopathy Neck: Positive: Supple, Nontender, Enlarged Nodes @ - left anterior cervical nodes enlarged. Respiratory: Positive: Lungs clear, Normal breath sounds Cardiovascular: Positive: RRR, No Murmur Musculoskeletal Exam: Normal Neurological Exam: Normal Psychological Exam: Normal Skin Exam: Normal Images Dental: 1 - absent Dental Complaint Course/Dx - Course Course Of Treatment: Advised ER evaluation due to large facial swelling potentially compromising swallowing and encroaching on airway. Advised that he proceed to the ER for CT with contrast, with labs needed prior due to hx of renal compromise. - Differential Dx/Diagnosis Differential Diagnosis/Dx: Dental Abscess, Dental Caries, Fractured Tooth Provider Diagnosis: Dental abscess - Physician Notification/Consults Discussed Patient Care With: Belkis [place] Time Discussed With Above Provider: 08:10 Instructed by Provider To: MD Will See In ED Discharge ED - Sign-Out/Discharge Documenting (check all that apply): Patient Departure All imaging exams completed and their final reports reviewed: No Studies - Discharge Plan Condition: Stable Disposition: TRANS HIGHER LVL OF CARE FAC Patient Education Materials: Dental Abscess (ED) Referrals: Jan Bonds MD [Primary Care Provider] - Additional Instructions: Please go directly to [facility] emergency room due to the need for further evaluation and treatment of the likely abscess forming on the left side of your face. Imaging is needed to assess the extent of this, and a treatment plan formed based on the results. - Billing Disposition and Condition Condition: STABLE Disposition: Trans Higher Lvl of Care Fac
== END 2019-04-10 08:22 | disposition short-term general hospital (02) ==
LOC: UCCORT 07:30
DX: K04.7 Periapical abscess without sinus (principal); Z88.8 Allergy status to other drugs, medicaments and biological substances
CPT/HCPCS: 99212; G0463